=== PATIENT | male | born 1980 | race Caucasian/White ===

== ENCOUNTER 2023-10-21 12:25 | Emergency (ER) | payer MEDICAID ==
[~2023-10-21] VITALS: Ht 170.2 cm; Wt 108.9 kg
[2023-10-21] MEDS ORDERED: IV NORMAL SALINE 1000 ML BAG IV ONE (12:30)
[2023-10-21 13:06] LABS: BASOPHILS % (AUTO) 0.8 % (0.0-2.0); EOSINOPHILS % (AUTO) 0.5 % (0.0-7.0); HEMATOCRIT 43.6 % (36.7-47.1); HEMOGLOBIN 14.1 g/dL (12.5-16.3); LYMPHOCYTES # (AUTO) 1.5 K/uL (0.8-4.8); LYMPHOCYTES % (AUTO) 25.1 % (20.5-51.5); MEAN CORPUSCULAR HEMOGLOBIN 29.2 uug (23.8-33.4); MEAN CORPUSCULAR HGB CONC 32 g/dL (32.5-36.3); MEAN CORPUSCULAR VOLUME 90.3 fL (73.0-96.2); MONOCYTES # (AUTO) 0.5 K/uL (0.1-1.30); MONOCYTES % (AUTO) 8.9 % (0.0-11.0); NEUTROPHILS # (AUTO) 3.8 K/uL (1.8-8.9); NEUTROPHILS % (AUTO) 64.7 % (38.5-71.5); PLATELET COUNT (AUTO) 259 K/uL (152-348); RED BLOOD CELL COUNT(AUTO) 4.82 MIL/uL (4.06-5.63); RED CELL DISTRIBUTION WIDTH 13.1 % (12.1-16.2); WHITE BLOOD COUNT (AUTO) 5.8 K/uL (3.6-10.2)
[2023-10-21 13:27] LABS: ALANINE AMINOTRANSFERASE 16 U/L (16-63); ALBUMIN 3.5 g/dL (3.4-5.0); ALKALINE PHOSPHATASE 127 U/L (50-136); ASPARTATE AMINOTRANSFERASE 5 U/L (15-37); BILIRUBIN,DIRECT 0.1 mg/dL (0.0-0.2); BILIRUBIN,TOTAL 0.6 mg/dL (0.2-1.0); CALCIUM 10.2 mg/dL (8.5-10.1); CARBON DIOXIDE 28 mmol/L (21-32); CHLORIDE 99 mmol/L (98-107); CREATININE 1.7 mg/dL (0.6-1.3); POTASSIUM 4.5 mmol/L (3.5-5.1); SODIUM SERUM 132 mmol/L (136-145); TOTAL PROTEIN, SERUM 7.6 g/dL (6.4-8.2); UREA NITROGEN, BLOOD 25 mg/dL (7-18)
[2023-10-21 13:35] LABS: DIFFERENTIAL COMMENT 1
[2023-10-21] MEDS ORDERED: BICT1TAB PO (13:38)
[2023-10-21 14:01] LABS: GLUCOSE 543 mg/dL (74-106)
[2023-10-21] MEDS ORDERED: glargine (14:08)
[2023-10-21] MEDS ORDERED: LISI40TA13 PO (14:08)
[2023-10-21] MEDS ORDERED: lispro insulin (14:09)
[2023-10-21] MEDS ORDERED: PREG150C PO (14:10)
[2023-10-21] MEDS ORDERED: IV NS 1000 ML 1,000 ML IV ONE ×2 (14:15→15:00)
[2023-10-21] MEDS ORDERED: INSULIN REGULAR, HUMAN 300 UNIT/3 ML VIAL IV ONE (14:15)
[2023-10-21] MEDS ORDERED: INSULIN REGULAR, HUMAN 300 UNIT/3 ML VIAL ONE (14:18)
[2023-10-21] MEDS ORDERED: METO5TAB87 PO (15:51)
[2023-10-21 16:57] VITALS: BP 135/82; TEMP 98.3; O2SAT 98
== END 2023-10-21 17:29 | disposition home or self-care (01) ==
LOC: ER 12:25
DX: E11.65 Type 2 diabetes mellitus with hyperglycemia (principal); R14.0 Abdominal distension (gaseous); R55 Syncope and collapse; Z79.899 Other long term (current) drug therapy
CPT/HCPCS: 99285; 74176; 96374; 96361; 71045; 80076; 80048; 82962; 85025; 85379; 84484; 36415; 93005; 83605; J1815; J7040 ×2; A4606; A4663